=== PATIENT | female | born 1970 | race Caucasian/White ===

== ENCOUNTER 2021-01-10 05:18 | Day surgery (SDC) | payer BC ==
[~2021-01-10] VITALS: Ht 172.7 cm; Wt 61.4 kg
[~2021-01-10 05:18] MED LIST: SODIUM CHLORIDE 0.9% 1,000 ML IV ONE; SODIUM CHLORIDE 0.9% 1,000 ML ONE
[2021-01-10] MEDS ORDERED: RINGERS SOLUTION,LACTATED 1,000 ML IV ONE (05:30)
[2021-01-10] MEDS ORDERED: BUPIVACAINE HCL/PF 0.5% 30 ML VIAL ONE (05:59)
[2021-01-10] MEDS ORDERED: EPINEPHrine 1:1,000 [1 MG/ML] AMP ONE (05:59)
[2021-01-10] MEDS ORDERED: LIDOCAINE/PF 1% 30 ML VIAL ONE (05:59)
[2021-01-10 06:14] LABS: BASOPHILS % (AUTO) 0.9 % (0.0-2.0); EOSINOPHILS % (AUTO) 2.4 % (1.0-6.0); HEMATOCRIT 34.4 % (36-46); HEMOGLOBIN 12.1 g/dL (12.0-16.0); LYMPHOCYTES # (AUTO) 1.2 K/uL (1.0-4.8); LYMPHOCYTES % (AUTO) 20.9 % (22.0-44.0); MEAN CORPUSCULAR HEMOGLOBIN 35.7 pg (26.0-34.0); MEAN CORPUSCULAR HGB CONC 35.3 G/dL (31.0-37.0); MEAN CORPUSCULAR VOLUME 101 fL (80-100); MONOCYTES # (AUTO) 0.6 K/uL (0.1-1.0); MONOCYTES % (AUTO) 9.4 % (2.0-9.0); NEUTROPHILS # (AUTO) 3.9 K/uL (1.8-7.7); NEUTROPHILS % (AUTO) 66.4 % (40.0-70.0); PLATELET COUNT (AUTO) 270 K/uL (150-450); RED BLOOD CELL COUNT(AUTO) 3.41 MIL/uL (4.00-5.20); RED CELL DISTRIBUTION WIDTH 13.4 % (11.5-14.5)
[2021-01-10] MEDS ORDERED: BUPIVACAINE LIPOSOME/PF 1.3%-13.3MG/ML SUSPENSION 20 ML VIAL INJ ONE (06:15)
[2021-01-10 06:16] LABS: COVID AG,FIA SOURCE NASOPHARYNGEAL
[2021-01-10 06:23] LABS: ANION GAP 7 mmol/L (8-16); CALCIUM, TOTAL 9.7 mg/dL (8.8-10.5); CARBON DIOXIDE 29 mmol/L (22-29); CHLORIDE 104 mmol/L (98-107); CREATININE 0.76 mg/dL (0.60-1.30); GLOMERULAR FILTR. RATE CALC > 60 mL/min (>60); GLUCOSE,RANDOM 97 mg/dL (70-110); POTASSIUM 4.3 mmol/L (3.5-5.1); SODIUM SERUM 140 mmol/L (136-145); UREA NITROGEN, BLOOD 18 mg/dL (7-18)
[2021-01-10] MEDS ORDERED: MECL-186 PO ×2 (06:23)
[2021-01-10] MEDS ORDERED: MONT-35 PO (06:25)
[2021-01-10] MEDS ORDERED: RHUB4TAB PO (06:25)
[2021-01-10 06:26] LABS: PROTHROMBIN TIME 11.1 SEC (9.4-11.6)
[2021-01-10 06:34] LABS: HCG,QUANTITATIVE 1 mIU/mL (0-6)
[2021-01-10] MEDS ORDERED: METH2.5 PO (06:37)
[2021-01-10] MEDS ORDERED: LEVO88TA4 PO (06:37)
[2021-01-10] MEDS ORDERED: [UNRECOGNIZED DRUG - OTHER] PO (06:37)
[2021-01-10] MEDS ORDERED: FOLI0.4T6 PO (06:37)
[2021-01-10] MEDS ORDERED: EYEL1TOW2 PO (06:37)
[2021-01-10] MEDS ORDERED: CHOL200074 PO (06:37)
[2021-01-10] MEDS ORDERED: CELE100 PO (06:37)
[2021-01-10] MEDS ORDERED: FLUT110HFA IH (06:40)
[2021-01-10] MEDS ORDERED: FLUT16H NASAL (06:40)
[2021-01-10] MEDS ORDERED: ACETAMINOPHEN 1000 MG/ISO-OSM 100 ML IV ONE (06:41)
[2021-01-10] MEDS ORDERED: VANCOMYCIN HCL 1 GM/D5% WATER 200 ML IV ONE (06:45)
[2021-01-10] MEDS ORDERED: MethylPREDNISolone SOD SUCC 125 MG/2 ML VIAL ONE (06:54)
[2021-01-10] MEDS ORDERED: OXYGEN THERAPY IH SCH (08:00)
[2021-01-10] MEDS ORDERED: FentaNYL CITRATE PF 100 MCG/2 ML VIAL IVP PRN (08:00)
[2021-01-10] MEDS ORDERED: SODIUM CHLORIDE 0.9% 1,000 ML ONE (09:08)
[2021-01-10] MEDS ORDERED: FAMOTIDINE 10 MG/ML 2 ML VIAL IVP ONE (09:45)
[2021-01-10] MEDS ORDERED: OxyCODONE HCL/ACETAMINOPHEN 10-325 MG TABLET PO ONE (11:30)
[2021-01-10] MEDS ORDERED: HYDROmorphone 2 MG/ML VIAL ONE (11:33)
[2021-01-10] MEDS: HYDROmorphone 2 MG/ML VIAL IVP PRN ×2 (11:34→11:53)
[2021-01-10] MEDS ORDERED: FOLI-130 PO (11:38)
[2021-01-10] MEDS ORDERED: SOLI5TAB6 PO (11:38)
[2021-01-10] MEDS ORDERED: KETOROLAC TROMETHAMINE 30 MG/ML VIAL IVP ONE (11:45)
[2021-01-10] MEDS ORDERED: MIDAZOLAM HCL 2 MG/2 ML VIAL IVP ONE (12:00)
[2021-01-10] MEDS ORDERED: FentaNYL CITRATE PF 100 MCG/2 ML VIAL IVP ONE (12:00)
[2021-01-10] MEDS ORDERED: OxyCODONE HCL/ACETAMINOPHEN 10-325 MG TABLET ONE (12:30)
== END 2021-01-10 13:05 | disposition home or self-care (01) ==
LOC: SURGERY 05:18 → EDBD 07:00 → SURGERY 13:05
PROVIDERS: ATTEND Orthopaedic Surgery
DX: S73.191A Other sprain of right hip, initial encounter (principal); M94.251 Chondromalacia, right hip; X58.XXXA Exposure to other specified factors, initial encounter; Y93.89 Activity, other specified; Y92.89 Other specified places as the place of occurrence of the external cause; Y99.8 Other external cause status; Z98.890 Other specified postprocedural states; Z72.89 Other problems related to lifestyle; Z88.1 Allergy status to other antibiotic agents; Z88.8 Allergy status to other drugs, medicaments and biological substances
CPT/HCPCS: 29915; 36415; 80048; 84702; 85025; 85610; 85730; 87426; 93005; C1716; C9290; C9803; J0131; J0171; J1170; J1885; J2250; J2930; J3010; J3370; J3490 ×3; J7030